=== PATIENT | female | born 1945 | race Caucasian/White ===

== ENCOUNTER 2016-08-30 09:10 | Outpatient (CLI) | payer OTHER ==
[2016-08-30 10:29] LABS: eGFR (African) > 60; eGFR (Non-African) > 60
== END 2016-08-30 09:11 ==
LOC: LAB 09:10
PROVIDERS: ATTEND Family Medicine
DX: E78.2 Mixed hyperlipidemia (principal)
CPT/HCPCS: 36415; 80053; 80061

== ENCOUNTER 2017-01-27 08:57 | Emergency (ER) | payer OTHER ==
[2017-01-27 09:16] VITALS: BP 162/74
--- NOTE | 2017-01-27 09:30 | ED Physician Documentation ---
Sore Throat/Dental Pain - HPI Stated Complaint: Sore Throat Chief Complaint: Sore Throat Onset: days ago (3) Context: Other (sore throat) Associated Symptoms: sore throat, mild, moderate, runny nose. denies: fever, chills Further Comments: yes (family coming and dont want to be sick) - ROS CONST: no problems CVS/RESP: none GI/: denies: problems urinating NEURO/PSYCH: none - PAST HX Past History: other (htn hi chol-trig) Allergies/Adverse Reactions: Allergies Allergy/AdvReac Type Severity Reaction Status Date / Time No Known Drug Allergies Allergy Unverified 01/27/17 09:06 Home Medications: Ambulatory Orders Medication Instructions Recorded Amoxicillin [Trimox] 500 mg PO QID #40 capsule 01/27/17 Icosapent Ethyl [Vascepa] 4 gm PO DAILY 01/27/17 Losartan Potassium [Cozaar] 50 mg PO DAILY 01/27/17 - SOCIAL HX Smoking History: non-smoker Alcohol Use: rarely Drug Use: none - FAMILY HX Family History: No - VITAL SIGNS Vital Signs: Vital Signs Temp Pulse Resp BP Pulse Ox 99.1 F 90 18 162/74 98 01/27/17 08:57 01/27/17 08:57 01/27/17 08:57 01/27/17 08:57 01/27/17 08:57 - REVIEWED ASSESSMENTS Nursing Assessment Reviewed: Yes Vitals Reviewed: Yes Sore throat Physical Exam - EXAM General Appearance: mild distress Head/Neck: head nml inspection, trachea midline, cervical lymphadenopathy, anterior (mild) Mouth/Throat: gums nml. No: pharynx nml Ear/Nose: nml inspection. No: TM erythema Respiratory: no resp. distress, breath sounds nml CVS: reg. rate & rhythm, heart sounds nml Abdomen: soft, non-tender Extremities: non-tender, nml ROM Skin: warm/dry, normal color. No: cyanosis, diaphoresis, jaundice Neuro/Psych: oriented x3, mood/affect nml. No: disoriented, motor/sensory loss Discharge Clincal Impression: strept throat Prescriptions: Amoxicillin [Trimox] 500 mg PO QID #40 capsule Referrals: Cinthia David MD [Primary Care Provider] - 2 Days Home Medications: Ambulatory Orders Amoxicillin [Trimox] 500 mg PO QID #40 capsule 01/27/17 Icosapent Ethyl [Vascepa] 4 gm PO DAILY 01/27/17 Losartan Potassium [Cozaar] 50 mg PO DAILY 01/27/17 Condition: Good Disposition: 01 HOME, SELF-CARE Decision to Admit: NO Decision Time: 09:34
== END 2017-01-27 09:28 | disposition home or self-care (01) ==
LOC: ED 08:57
DX: J02.0 Streptococcal pharyngitis (principal)
CPT/HCPCS: 87880; 99283

== ENCOUNTER 2017-06-04 09:27 | Emergency (ER) | payer OTHER ==
--- NOTE | 2017-06-04 10:30 | ED Physician Documentation ---
Upper Respiratory Symptoms - HISTORIAN Historian: patient, spouse - HPI Stated Complaint: pain in chest with cough Chief Complaint: Upper Respiratory Symptoms Onset: days ago Duration: intermittent episodes Context: denies: recent foreign travel, insect bite(s) Severity: moderate Associated Symptoms: denies: fever, chills Worsened by Deep Breath: Yes - ROS CONST/EYES: denies: weakness, eye redness CVS/RESP: denies: none, chest pain LYMPH: denies: leg swelling GI/: denies: none NEURO/PSYCH: denies: fainting, dizziness MS/SKIN: denies: joint pain - PAST HX Lung Disease: none PE Risk Factors: none Other History: denies: cancer chemo, cancer radiation tx Surgeries/Procedures: other (Inguinal heria and tonsillectomy) Immunizations: tetanus Allergies/Adverse Reactions: Allergies Allergy/AdvReac Type Severity Reaction Status Date / Time No Known Drug Allergies Allergy Unverified 01/27/17 09:06 Home Medications: Ambulatory Orders Medication Instructions Recorded Icosapent Ethyl [Vascepa] 4 gm PO DAILY 01/27/17 Losartan Potassium [Cozaar] 50 mg PO DAILY 01/27/17 - SOCIAL HX Smoking History: non-smoker Alcohol Use: none Drug Use: none - FAMILY HX Family History: none - VITAL SIGNS Vital Signs: Vital Signs Temp Pulse Resp BP Pulse Ox 98.2 F 94 H 20 173/110 95 06/04/17 09:27 06/04/17 09:27 06/04/17 09:27 06/04/17 09:27 06/04/17 09:27 - REVIEWED ASSESSMENTS Nursing Assessment Reviewed: Yes Vitals Reviewed: Yes ED Results Lab/Radiology - Orders Orders: ED Orders Category Date Time Status predniSONE [Deltasone] Med 06/04/17 11:00 Once 40 mg PO NOW ONE Upper Respiratory Symptoms - EXAM General Appearance: no acute distress EENT: eyes nml inspection, nml ENT inspection Neck: normal inspection Respiratory: no resp. distress, breath sounds nml, no pain on inspiration Abdomen: non-tender, no organomegaly CVS: reg rate & rhythm, heart sounds normal, equal pulses Skin: color nml, no rash, warm,dry, cyanosis Extremities: non-tender, normal range of motion Neuro/Psych: oriented x3 Discharge Clincal Impression: Upper airway cough syndrome Referrals: Cinthia David MD [Primary Care Provider] - 2 Days Disposition: HOME, SELF-CARE Decision to Admit: NO Date of Decison to Admit: 06/04/17 Decision Time: 10:31
[2017-06-04] MEDS: predniSONE 10 MG TABLET PO ONE (10:34)
[2017-06-04 10:46] VITALS: BP 145/81
== END 2017-06-04 10:46 | disposition home or self-care (01) ==
LOC: ED 09:27
DX: R05 Cough (principal)
CPT/HCPCS: 94640; 99282; 99283; J7512